=== PATIENT | female | born 1935 | race Two or more races ===

== ENCOUNTER 2018-09-25 11:54 | Inpatient (IN) | payer MEDICARE, OTHER ==
[2018-09-25] VITALS (14 sets, daily range): BP systolic 93–128; BP diastolic 32–93; PULSE 70–87; RESP 20–27; Ht 160 cm; Wt 64.7 kg
[~2018-09-25] VITALS: Ht 160 cm; Wt 64.7 kg
[~2018-09-25 11:54] MED LIST: CARV12.598 PO; CHOL50009 PO; COSO10 LEFT EYE; EZET10TA31 PO; FURO-109 PO; GLYB1TAB3 PO; INSU100C3 SC; INSU100I28 SC; LEVO50TA7 PO; POTA8CAP PO; ROSU40TA35 PO; VALS80TA2 PO; WARF2.5T PO; WARF5TAB PO
[2018-09-25] MEDS ORDERED: ALBUTEROL 0.5% (NEB) 2.5 MG/0.5 ML AMP INH STA (12:12)
[2018-09-25] MEDS ORDERED: MAGNESIUM SULFATE 2 GM/50 ML 50 ML IVPB STA (12:12)
[2018-09-25] MEDS: morphine 2 MG INJ IV STA ×2 (12:12→12:40)
[2018-09-25] MEDS ORDERED: NITROGLYCERIN 2% 1 GM OINT PKT TD STA (12:12)
[2018-09-25] MEDS ORDERED: ONDANSETRON 4 MG INJ IV STA (12:12)
[2018-09-25] MEDS ORDERED: DEXAMETHASONE 10 MG/ML 1 ML INJ IV STA (12:12)
[2018-09-25] MEDS ORDERED: ASPIRIN 81 MG TAB PO STA (12:12)
[2018-09-25] MEDS ORDERED: FUROSEMIDE 20 MG INJ IV STA (12:12)
--- NOTE | 2018-09-25 12:28 | ERD ---
ER Documentation Chief Complaint Chief Complaint pt. 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 This is an 83-year-old female history of asthma, hypertension and possible CHF. The patient presents with shortness of breath that started approximately 1 hour prior to arrival with blood pressure that was elevated in the 1 8190 range. Upon arrival the patient received a breathing treatment via EMS. Patient is describing persistent shortness of breath and a sensation that she cannot take a deep breath in. She denies any pressure. No fevers chills or cough. No pleuritic pain. Symptoms are described as moderate. ROS All systems reviewed and are negative except as per history of present illness. Medications Home Meds Reported Medications Levothyroxine Sodium* (Levoxyl*) 50 Mcg Tablet, 50 MCG PO BEFORE BREAKFAST, #30 TAB 09/25/18 Insulin Aspart* (Novolog Insulin Pen*) 100 Unit/Ml Soln, 0 SC .SLIDING SCALE AC, EA WITH LARGEST MEAL 09/25/18 Glipizide/Metformin HCl (Glipizide-Metformin 5-500 mg) 1 Each Tablet, 1 TAB PO BID 09/25/18 Furosemide* (Furosemide*) 20 Mg Tablet, 20 MG PO DAILY, #60 TAB 09/25/18 Ezetimibe* (Zetia*) 10 Mg Tablet, 10 MG PO HS, TAB 09/25/18 Dorzolamide-Timolol* (Cosopt*) 2%-0.5% - 10 Ml Soln, 1 DROP BOTH EYES BID, BOTTLE 09/25/18 Cholecalciferol (Vitamin D3) 5,000 Unit Tablet, 5000 UNIT PO DAILY, TAB 09/25/18 Carvedilol* (Carvedilol*) 3.125 Mg Tablet, 3.125 MG PO BID, #60 TAB 09/25/18 Discontinued Reported Medications Dorzolamide-Timolol* (Cosopt*) 2%-0.5% Soln, 1 DROP LEFT EYE BID, BOTTLE 04/06/14 Ezetimibe* (Zetia*) 10 Mg Tablet, 10 MG PO DAILY, TAB 04/06/14 Warfarin Sodium* (Coumadin*) 5 Mg Tablet, 5 MG PO DAILY, TAB 04/06/14 Warfarin Sodium* (Coumadin*) 2.5 Mg Tablet, 2.5 MG PO DAILY, TAB 04/06/14 Furosemide* (Lasix*) 40 Mg Tablet, 40 MG PO DAILY, TAB 04/06/14 Potassium Chloride* (Potassium Chloride*) 8 Meq Capsule.er, 8 MEQ PO DAILY, CAP 04/06/14 Insulin Aspart (Novolog) 100 U/Ml Cartridge, 10 UNITS SC DAILY, EA 04/06/14 Cholecalciferol* (Vitamin D*) 5,000 Unit Tablet, 5000 UNIT PO WEEKLY ON SUNDAY, TAB 02/03/14 Insulin Detemir* (Levemir*) 100 U/Ml Insuln.pen, 40 UNIT SC QAM, EA 02/03/14 Levothyroxine Sodium* (Levothyroxine Sodium*) 50 Mcg Tablet, 50 MCG PO AC BREAKF AST, TAB 02/03/14 Rosuvastatin Calcium* (Crestor*) 40 Mg Tablet, 40 MG PO HS, TAB 02/03/14 Glyburide, Micro-Metformin Hcl (Glucovance) 5-500 Mg Tablet, 1 TAB PO BID, TAB 02/03/14 Carvedilol* (Coreg*) 12.5 Mg Tablet, 12.5 MG PO BID, TAB 02/03/14 Valsartan* (Diovan*) 80 Mg Tablet, 80 MG PO DAILY, TAB 02/03/14 Allergies Allergies: Coded Allergies: No Known Allergy (Unverified , 09/25/18) PMhx/Soc History of Surgery: No Anesthesia Reaction: No Hx Neurological Disorder: No Hx Respiratory Disorders: No Hx Cardiac Disorders: Yes (CAD AND PACEMAKER) Hx Psychiatric Problems: No Hx Miscellaneous Medical Probl: Yes (HTN, CHF< CAD, IDDM, polyneuropathy, mild dementia) Hx Alcohol Use: No Hx Substance Use: No Hx Tobacco Use: No FmHx Family History: No diabetes Physical Exam Vitals Vital Signs Date Temp Pulse Resp B/P (MAP) Pulse Ox O2 O2 Flow FiO2 Time Delivery Rate 09/25/18 56 100 60 13:15 09/25/18 77 100 100 12:24 09/25/18 98.1 89 22 134/103 94 12:12 (113) Physical Exam General: Anxious Head: Normocephalic, atraumatic. Eyes: Pupils equally reactive, EOM intact ENT: Moist mucous membranes Neck: Supple, no lymphadenopathy Respiratory: Rales at the bases bilaterally left greater than right with mild increased work of breathing Cardiovascular: RRR, no murmurs, rubs, or gallops Abdominal: Soft, non-tender, non-distended, no peritoneal signs : Deferred MSK: No edema, no unilateral swelling, 5/5 strength Neurologic: Alert and oriented, moving all extremities, normal speech, no focal weakness, no cerebellar signs Skin: No rash Psych: Normal mood Result Diagram: 09/25/18 1220 09/25/18 1220 Results 24 hrs Laboratory Tests Test 09/25/18 12:20 White Blood Count 13.8 10^3/ul Red Blood Count 5.00 10^6/ul Hemoglobin 12.9 g/dl Hematocrit 41.6 % Mean Corpuscular Volume 83.2 fl Mean Corpuscular Hemoglobin 25.8 pg Mean Corpuscular Hemoglobin Concent 31.0 g/dl Red Cell Distribution Width 17.8 % Platelet Count 391 10^3/UL Mean Platelet Volume 10.4 fl Immature Granulocytes % 0.900 % Neutrophils % 80.2 % Lymphocytes % 12.9 % Monocytes % 4.5 % Eosinophils % 1.1 % Basophils % 0.4 % Nucleated Red Blood Cells % 0.0 /100WBC Immature Granulocytes # 0.120 10^3/ul Neutrophils # 11.0 10^3/ul Lymphocytes # 1.8 10^3/ul Monocytes # 0.6 10^3/ul Eosinophils # 0.2 10^3/ul Basophils # 0.1 10^3/ul Nucleated Red Blood Cells # 0.0 10^3/ul Prothrombin Time 12.6 Sec Prothrombin Time Ratio 1.0 INR International Normalized Ratio 0.93 Activated Partial Thromboplast Time 22.6 Sec Sodium Level 141 mmol/L Potassium Level 4.4 mmol/L Chloride Level 102 mmol/L Carbon Dioxide Level 27 mmol/L Anion Gap 12 Blood Urea Nitrogen 15 mg/dl Creatinine 1.09 mg/dl Est Glomerular Filtrat Rate mL/min mL/min Glucose Level 238 mg/dl Calcium Level 9.0 mg/dl Total Bilirubin 0.4 mg/dl Direct Bilirubin 0.00 mg/dl Indirect Bilirubin 0.4 mg/dl Aspartate Amino Transf (AST/SGOT) 26 IU/L Alanine Aminotransferase (ALT/SGPT) 22 IU/L Alkaline Phosphatase 77 IU/L Troponin I < 0.012 ng/ml B-Type Natriuretic Peptide 1530 PG/ML Total Protein 8.0 g/dl Albumin 4.2 g/dl Globulin 3.80 g/dl Albumin/Globulin Ratio 1.10 Current Medications Medications Dose Sig/Chelsea Start Time Status Last (Trade) Ordered Route PRN Stop Time Admin Dose Reason Admin Aspirin 162 mg ONCE STAT 09/25/18 DC 09/25/18 (Aspirin) PO 12:12 12:35 09/25/18 12:14 1 inch ONCE STAT 09/25/18 DC 09/25/18 Nitroglycerin TD 12:12 12:35 09/25/18 12:14 (Nitroglyceri n 2% Oint) Morphine 2 mg ONCE STAT 09/25/18 DC Sulfate IV 12:12 (morphine) 09/25/18 12:14 Ondansetron 4 mg ONCE STAT 09/25/18 DC 09/25/18 HCl (Zofran IV 12:12 12:34 Inj) 09/25/18 12:14 Furosemide 60 mg ONCE STAT 09/25/18 DC 09/25/18 (Lasix) IV 12:12 12:35 09/25/18 12:14 Albuterol 10 mg ONCE STAT 09/25/18 DC 09/25/18 (Proventil INH 12:12 12:36 0.5% (Neb)) 09/25/18 12:14 10 mg ONCE STAT 09/25/18 DC 09/25/18 Dexamethasone IV 12:12 12:35 (Decadron) 09/25/18 12:14 Magnesium 50 ml @ 25 ONCE STAT 09/25/18 09/25/18 Sulfate mls/hr IVPB 12:12 12:34 09/25/18 14:11 Procedures/MDM EKG, MONITORS, & DIAGNOSTIC IMAGING: Most recent echocardiogram in electronic medical record Conclusions Normal left ventricular cavity size. Normal left ventricular wall thickness. Overall, mild left ventricular systolic dysfunction. Not all LV neff were visualized. Ejection fraction is visually estimated at 45-50 %. Stage II diastolic dysfunction. Normal right ventricular size and function. There is mild enlargement of left atrium. There is mild enlargement of right atrium. No significant valvular stenosis or regurgitation seen. Normal pericardium with no significant pericardial effusion. Electronically Signed By: Ricardo Anne 07-Apr-2014 13:28:52 -0800 Patient Name: CLAU YEAGER Study Date: 07-Apr-2014 [id number] EKG: I reviewed and interpreted a 12-lead EKG. Rhythm: Paced ST Changes: No contiguous ST segment elevations T waves: No contiguous T wave inversions Impression: No evidence of acute cardiac ischemia CXR Chest x-ray: I reviewed and interpreted a 1 view of the chest Mediastinum: No enlargement Cardiac silhouette: cardiomegaly Airspace: Bilateral pulmonary edema, large left pleural effusion Bones: No evidence of fracture LAB INTERPRETATION: I reviewed the laboratory testing and it shows elevated BNP, negative troponin MEDICAL DECISION MAKING: Patient presents with elevated blood pressure, acute shortness of breath and a clinical exam consistent with acute pulmonary edema. I believe the patient's clinical exam is consistent with acute CHF exacerbation or acute hypertensive emergency and flash pulmonary edema. Patient additionally has asthma and and possible concomitant asthma exacerbation. Low concern for pneumonia, pulmonary embolism or dissection. Patient does have increased work of breathing and would benefit from positive pressure ventilation. BiPAP was initiated. ER COURSE: * Preload and afterload reduction with nitroglycerin, morphine, Lasix * BiPAP initiated * Breathing treatment and steroids and magnesium provided for possible asthma exacerbation * Aspirin provided * Blood pressure dropped slightly with nitroglycerin, this was discontinued. The patient is much improved on positive pressure ventilation. Signs and symptoms not consistent with infectious process. Patient tolerating BiPAP well. Will need the intensive care unit given close monitoring necessary and initiation of positive pressure ventilation CONSULTATION: None DISPOSITION PLAN: Intensive care unit admission Accepting care team and consultations: I discussed the current laboratory data, diagnostic imaging and emergency care provided. Admitting team: Dr. Tolentino Admitting team indication: Insurance directed Critical Care Note: Total time: 45 minutes Indication/Organ System Threat: Acute respiratory failure and acute pulmonary edema I spent the above amount of critical care time with the patient, not including billable procedures. This included chart review, consultations, repeat bedside evaluations, and titration of appropriate medications to prevent cardiopulmonary or respiratory collapse. Departure Diagnosis: Primary Impression: Hypertensive emergency Additional Impressions: Acute exacerbation of CHF (congestive heart failure) Heart failure type: diastolic Qualified Codes: I50.33 - Acute on chronic diastolic (congestive) heart failure Acute respiratory failure Respiratory failure complication: unspecified whether with hypoxia or hypercapnia Qualified Codes: J96.00 - Acute respiratory failure, unspecified whether with hypoxia or hypercapnia Pleural effusion, left Condition: Serious BORM, EL A., MD Sep 25, 2018 12:28
[2018-09-25] MEDS ORDERED: CARV3.1260 PO (13:53)
[2018-09-25] MEDS ORDERED: CHOL500010 PO (13:54)
[2018-09-25] MEDS ORDERED: DORZ10DR22 BOTH EYES (13:55)
[2018-09-25] MEDS ORDERED: EZET10TA31 PO (13:55)
[2018-09-25] MEDS ORDERED: FURO20TA3 PO (13:55)
[2018-09-25] MEDS ORDERED: GLIP1TAB6 PO (13:57)
[2018-09-25] MEDS ORDERED: NOVO3I SC (13:58)
[2018-09-25] MEDS ORDERED: LEVO50TA71 PO (13:59)
[2018-09-25] MEDS ORDERED: POTA8TAB2 PO (13:59)
[2018-09-25] MEDS ORDERED: ASPI325T30 PO (14:00)
[2018-09-25] MEDS ORDERED: ROSU40TA35 PO (14:00)
[2018-09-25] MEDS ORDERED: MEMA1CAP3 PO (14:01)
[2018-09-25] MEDS ORDERED: CILO100T PO (14:01)
[2018-09-25] MEDS ORDERED: INSU300I SQ (14:02)
[2018-09-25] MEDS ORDERED: GABA100C14 PO (14:02)
[2018-09-25] MEDS ORDERED: LOSA25TA12 PO (14:03)
[2018-09-25] MEDS ORDERED: MECL-77 PO (14:03)
[2018-09-25] MEDS: DEXTROSE 5%-0.45% NACL 1,000 ML IV SCH (18:30)
[2018-09-25] MEDS ORDERED: GLUCAGON 1 MG INJ IM PRN (18:30)
[2018-09-25] MEDS ORDERED: GLUCOSE GEL 15 GRAM TUBE BUCCAL PRN (18:30)
[2018-09-25] MEDS ORDERED: GLUCOSE GEL 15 GRAM TUBE PO PRN ×2 (18:30)
[2018-09-25] MEDS ORDERED: DEXTROSE 50% 50 ML SYRINGE IV PRN ×2 (18:30)
[2018-09-25] MEDS: INSULIN ASPART [NOVOLOG] 3 ML PEN SC SCH ×2 (18:34→21:19)
[2018-09-25] MEDS: CILOSTAZOL 100 MG TAB PO SCH (20:14)
[2018-09-25] MEDS ORDERED: DORZOLAMIDE/TIMOLOL 10 ML OPH BOTH EYES SCH (21:00)
--- NOTE | 2018-09-25 21:08 | CONS ---
DATE OF ADMISSION: 09/25/2018 DATE OF CONSULTATION: 09/25/2018 REASON FOR CONSULTATION: Shortness of breath, respiratory failure, assess for congestive heart failu re, as well as permanent pacemaker, history of stent. REQUESTING PHYSICIAN: Dr. Graeme Grullon HISTORY OF PRESENT ILLNESS: Ms. Wright is an 83-year-old female with history of coronary artery d isease status post prior PCI, hypertension, diabetes mellitus, atrial fibrillation, permanent pacemak er, who presented to the emergency department with complaints of acute-onset shortness of breath and hypertension. Upon arrival, temperature 98.1, blood pressure 134/103, pulse 89, respiratory rate 22, satting 94%. The patient's labs revealed a white blood cell count of 13.8, hemoglobin 12.9, platele t count 391; sodium 141, potassium 4.4, creatinine 1.0, BUN of 15, AST 26, ALT 22; troponin negative, BNP of 1530; INR 0.93. The patient underwent a chest x-ray revealing findings suggestive of pulmona ry vascular congestion with large left and small right pleural effusions, mild cardiomegaly and aorti c atherosclerosis. The patient just underwent a chest ultrasound revealing moderate right pleural ef fusion and large left pleural effusion. The patient's electrocardiogram was ventricular paced with l ow voltage. The patient in the emergency department was treated with aspirin 162 mg, morphine 2 mg I V x1, Lasix 60 mg IV x1, Decadron 2 mg IV x1, magnesium sulfate. Prior to the initiation of BiPAP, s he was admitted to the ICU. Since admit to the ICU, patient has had significant diuresis over 900 mL and remains on BiPAP. PAST MEDICAL HISTORY: As above in the HPI. MEDICATIONS CURRENTLY IN THE HOSPITAL: 1. Aspirin 325 mg daily. 2. Cozaar 12.5 mg daily. 3. Lasix 40 mg IV daily. 4. Synthroid 50 mcg daily. 5. Carvedilol 3.125 mg p.o. b.i.d. 6. Pletal 100 mg b.i.d. 7. Cosopt eyedrops. 8. Potassium chloride. ALLERGIES: NO KNOWN DRUG ALLERGIES. SOCIAL HISTORY: No current tobacco, ETOH or illicit drug use. FAMILY HISTORY: No history of sudden cardiac or early CAD. REVIEW OF SYSTEMS: As above in the HPI. CONSTITUTIONAL: No fevers or chills. PULMONARY: Respiratory failure, on BiPAP. GASTROINTESTINAL: No vomiting. GENITOURINARY: No hematuria. MUSCULOSKELETAL: Degenerative joint disease. PSYCHIATRIC: No documented psych history. NEUROLOGIC: No documented history of CVA. ENDOCRINE: Positive for history of diabetes mellitus and hypothyroidism. PHYSICAL EXAMINATION: VITAL SIGNS: Temperature of 96.7, blood pressure most recently 93/32, pulse 75, respiratory rate 22, satting 100% on BiPAP. GENERAL: The patient is alert, awake, appears somewhat uncomfortable. NECK: JVP approximately 9 to 10 cm of water. CHEST: Upper airway transmitted rhonchus sounds. HEART: Regular rate and rhythm. Normal S1, S2. A I/ systolic murmur. ABDOMEN: Positive bowel sounds. Soft. EXTREMITIES: No significant pitting edema, 1+ pulses bilateral posterior tibial. LABORATORY DATA: As above in the HPI. No further labs for my review at this time. IMAGING STUDIES: As above in the HPI. No further imaging studies for my review at this time. ELECTROCARDIOGRAM: As above in the HPI. No further electrocardiograms for my review at this time. IMPRESSION: 1. Congestive heart failure exacerbation, question systolic versus diastolic. By most recent echo i n 2013, EF of 45% to 50%. Thus, it will be systolic, acute on chronic, than diastolic. 2. Permanent pacemaker with no signs of dysfunction at this time, atrioventricular pacing 100%. 3. Pleural effusions likely consistent with the patient's congestive heart failure exacerbation with volume overloaded state. 4. Respiratory failure, on BiPAP. 5. Renal insufficiency, mild. 6. Leukocytosis. 7. Peripheral arterial disease, without medications. 8. Hypothyroidism. 9. Diabetes mellitus. RECOMMENDATIONS: 1. At this time, we would maintain patient in ICU on BiPAP. At this time, we would continue the pat ient's Lasix for diuresis. We will change the patient's Lasix to b.i.d. and continue to follow volum e status closely. 2. Continue the patient's baseline low-dose carvedilol and losartan as tolerated only. 3. We will check a 2D echo for reassessment of patient's ejection fraction, wall motion or any major abnormalities. 4. We will consider bronchodilators as necessary. 5. Continue patient's Pletal for treatment of peripheral arterial disease. 6. We will complete a rule out for myocardial infarction to ensure that the patient's constellation of symptoms is not the result of an acute coronary syndrome such as acute myocardial infarction. We will continue the patient's aspirin at this time additionally. 7. We will check a fasting lipid panel for general risk stratification and initiate lipid-lowering m edication as necessary. 8. Resume the patient's baseline medication for diabetes and follow blood sugars closely. Thank you for allowing me to take part in the care of this patient. I will continue to follow along very closely with you. Further recommendations will be made as the patient progresses through her in patient hospital clinical course. Dictated By: CARMEN STODDARD/ABEBE Conf#: [id number] DID#: [id number] CC: GRAEME GRULLON MD;*End*
[2018-09-25] MEDS: DORZOLAMIDE/TIMOLOL/PF 0.2 ML DROPERETTE BOTH EYES SCH (21:16)
--- NOTE | 2018-09-25 22:40 | HP ---
DATE OF ADMISSION: 09/25/2018 HISTORY OF PRESENT ILLNESS: The patient was brought into the emergency room by family members for sh ortness of breath. Apparently before coming to the emergency room, patient started having shortness of breath and difficulty taking deep breaths in that is why family members brought her into the emerg ency room. The patient did not have any chest pain, did not have any fever, chills, cough of any sor t, just shortness of breath. The patient was brought in by EMT and in the ambulance was given a jarod thing treatment and brought into the ER. PAST MEDICAL HISTORY: The patient has past medical history of hypertension, coronary artery disease, type 2 diabetes mellitus, insulin-dependent, CHF, bilateral carotid endarterectomies years ago. She also has history of atrial fibrillation and she has a pacemaker. History of atherosclerotic vascula r disease, degenerative joint disease, history of falls and fractures and mild to moderate dementia. HOME MEDICATIONS: Are as follows, she is on: 1. Synthroid 50 p.o. daily. 2. Insulin injections per sliding scale. 3. She is on Janumet /500 twice a day. 4. Lasix 20 once a day. 5. Zetia 10 once a day. 6. Eyedrops for glaucoma. 7. She was on Coumadin, but recently stopped by her hat checker. 8. Potassium 10 mEq p.o. daily. 9. Vitamin D 5000 units daily. 10. Synthroid 50 mcg daily. 11. Rosuvastatin 40 mg daily. 12. Carvedilol 12.5 twice a day. 13. Valsartan 80 mg once a day. ALLERGIES: NO KNOWN ALLERGIES. FAMILY HISTORY: History of hypertension and atherosclerotic vascular disease. PAST SURGICAL HISTORY: As I mentioned, she had bilateral endarterectomies and she has a pacemaker. SOCIAL HISTORY: No history of alcohol abuse or drug abuse. No history of tobacco use. REVIEW OF SYSTEMS: At this point, patient complaining of shortness of breath only. She denies of an y chest pain. She denies of any cough, sputum production, . Denies of any fever. Denies of an y epigastric pain. Denies of nausea, vomiting. Denies of abdominal pain. Denies of any hesitancy, urgency or pain during urination. PHYSICAL EXAMINATION: GENERAL: The patient is short of breath, had difficulty taking deep breaths in, but no pain over the chest wall. HEENT: Head is atraumatic, normocephalic. Pupils are equal and reactive to light. Extraocular musc les are intact. Nares are clear, no obstruction, no deviation of the septum. Oral cavity normal ora l hygiene. Ear canals are clear, no signs of inflammation or infection. Tympanic membranes are inta ct. NECK: Supple. No JVD, no surgical scars, no lymph nodes palpable over the neck. CHEST: AP contour is within normal limits. BREASTS: Nipples are normal, no nipple retraction. HEART: S1, S2, pacing properly. LUNGS: Crackles over the bases of the lungs bilaterally, left more than the right with mild expirato ry wheezes. ABDOMEN: Soft, positive bowel sounds, no hepatosplenomegaly, no masses palpable over the abdomen and no rebound tenderness. EXTREMITIES: No edema, clubbing or cyanosis of the extremities. LABORATORY DATA: Today, white count is 13.8, hemoglobin 12.9, hematocrit 41.6 and platelets 391. So dium is 141, potassium 4.4, BUN is 15, creatinine 1.09 and sugars are elevated at 238. The patient had EKG which showed no new changes. ADMITTING DIAGNOSES: 1. Pleural effusion. 2. Acute congestive heart failure with diastolic dysfunction. 3. Hypertensive urgency. 4. Type 2 diabetes mellitus with complications. 5. Chronic kidney disease. 6. Atherosclerotic vascular disease. 7. Dyslipidemia. 8. Shortness of breath. PLAN: The patient will go to ICU for the elevated blood pressure and closer monitoring and will be o n BiPAP. Once the patient's oxygenation is much better, the patient can be transferred to tele. The patient at this time is comfortable on BiPAP but will titrate off very soon. Therefore, patient als o will be seen by the hat checker. Advised Dr. Hoang to see the patient. Also, Dr. Gonzalez for p ulmonary consult. Dictated By: GRAEME GRULLON MD SB/ABEBE Conf#: [id number] DID#: [id number]
[2018-09-26] VITALS (18 sets, daily range): BP systolic 89–132; BP diastolic 38–69; PULSE 70–77; RESP 17–20
[2018-09-26] MEDS: INSULIN ASPART [NOVOLOG] 3 ML PEN SC SCH ×2 (00:54→04:33)
[2018-09-26] MEDS: LEVOTHYROXINE 50 MCG TAB PO SCH (06:34)
[2018-09-26] MEDS: Insulin NOVOLOG SS MODERATE Algorithm (SS with meals and bedtime) SC SCH ×4 (07:55→20:44)
[2018-09-26] MEDS: LOSARTAN 25 MG TAB PO SCH (09:00)
[2018-09-26] MEDS: FUROSEMIDE 40 MG INJ IV SCH ×2 (09:00→20:31)
[2018-09-26] MEDS ORDERED: FUROSEMIDE 40 MG INJ IV SCH (09:00)
[2018-09-26] MEDS: CILOSTAZOL 100 MG TAB PO SCH ×2 (09:51→20:29)
[2018-09-26] MEDS: ASPIRIN 325 MG TAB PO SCH (09:51)
[2018-09-26] MEDS: DORZOLAMIDE/TIMOLOL/PF 0.2 ML DROPERETTE BOTH EYES SCH ×2 (09:51→20:29)
[2018-09-26] MEDS: POTASSIUM CHLORIDE (SR) 8 MEQ CAP PO SCH (09:51)
[2018-09-26] MEDS ORDERED: ACCUCHECK 2 HOURS AFTER FIRST BITE XX SCH (09:55)
[2018-09-26] MEDS: DEXTROSE 5%-0.45% NACL 1,000 ML IV SCH (10:21)
[2018-09-26] MEDS ORDERED: INSULIN ASPART [NOVOLOG] 3 ML PEN SC SCH (11:20)
--- NOTE | 2018-09-26 11:23 | CONS ---
Assessment/Plan Assessment/Plan Assessment/Plan (Daily) Chest x-ray showing bilateral large pleural effusions with cardiomegaly. Assessment and recommendations; 1. Patient admitted with shortness of breath due to CHF exacerbation with large bilateral pleural effusions with a prior history of thoracentesis done several years ago. 2. Systemic hypertension. 3. Diabetes. 4. Hypothyroidism. 5. History of cardiac arrhythmia, status post pacemaker placement. 6. History of chronic mild renal insufficiency. Continue current supportive care. Schedule ultrasound-guided thoracentesis either right or left. Patient also is going to have pacemaker replacement. Currently there is no evidence to suggest any infective process. Continue BiPAP for now. I did have a very detailed discussion with the patient's daughter at bedside and answered all her questions. The daughter has agreed for thoracentesis. Consultation Date/Type/Reason Admit Date/Time Sep 25, 2018 at 13:37 Date of Consultation: Sep 26, 2018 Type of Consult Pulmonary Patient is a very pleasant 83-year-old lady who is a resident of [facility] transferred to hospital because of shortness of breath going on for the last 2 months. According to patient's daughter, the shortness of breath really got worse yesterday with wheezing. Patient denies any chest pain, fever, sputum production and hemoptysis. By the time I saw her, patient is laying comfortably in bed. And did not appear to be in any distress whatsoever. Because of language barrier, history was obtained from patient's daughter who was present in the room. According to her, the patient does have a history of thoracentesis performed several years ago. Past medical history; 1. History of cardiac arrhythmia, status post pacemaker placement in the past. 2. CHF. 3. Hypothyroidism. 4. Diabetes. 5. Mild renal insufficiency. 6. Hypertension. Medications; reviewed. Allergies; none. Social history; remote history of scant smoking. Family history; she is a . Has a supportive family. 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 Review of systems; denies any headache, sinus symptoms, seizures, dysphagia, chest pain, angina, complains of shortness of breath with exertion. Denies any cough, wheezing, sputum production or hemoptysis. Denies any abdominal pain, nausea vomiting. Melena hematochezia. Complains of mild orthopnea. Denies any urinary symptoms. General exam; elderly female, awake alert, currently no distress. Date/Time of Note DATE: 09/26/18 TIME: 11:18 Past Medical History Home Meds Reported Medications Meclizine Hcl* (Meclizine Hcl*) 25 Mg Tablet, 12.5 MG PO BID PRN for DIZZINESS, TAB 09/25/18 Losartan Potassium* (Losartan Potassium*) 25 Mg Tablet, 12.5 MG PO DAILY, TAB 09/25/18 Gabapentin* (Gabapentin*) 100 Mg Capsule, 100 MG PO BID PRN for PAIN, #90 CAP 09/25/18 Insulin Glargine,Hum.rec.anlog (Toujeo Solostar) 300 Unit/1 Ml Insuln.pen, 20 UNIT SQ QHS, EA 09/25/18 Memantine HCl/Donepezil HCl (Namzaric 28 mg-10 mg Capsule) 1 Each Cap.spr.24, 1 EACH PO DAILY 09/25/18 Cilostazol* (Cilostazol*) 100 Mg Tablet, 100 MG PO BID, TAB 09/25/18 Aspirin* (Aspirin*) 325 Mg Tablet, 325 MG PO DAILY, TAB 09/25/18 Rosuvastatin Calcium* (Crestor*) 40 Mg Tablet, 40 MG PO QHS, #30 TAB 09/25/18 Potassium Chloride* (Klor-Con*) 8 Meq Tablet.sa, 8 MEQ PO DAILY, TAB 09/25/18 Levothyroxine Sodium* (Levoxyl*) 50 Mcg Tablet, 50 MCG PO BEFORE BREAKFAST, #30 TAB 09/25/18 Insulin Aspart* (Novolog Insulin Pen*) 100 Unit/Ml Soln, 0 SC .SLIDING SCALE AC, EA WITH LARGEST MEAL 09/25/18 Glipizide/Metformin HCl (Glipizide-Metformin 5-500 mg) 1 Each Tablet, 1 TAB PO BID 09/25/18 Furosemide* (Furosemide*) 20 Mg Tablet, 20 MG PO DAILY, #60 TAB 09/25/18 Ezetimibe* (Zetia*) 10 Mg Tablet, 10 MG PO HS, TAB 09/25/18 Dorzolamide-Timolol* (Cosopt*) 2%-0.5% - 10 Ml Soln, 1 DROP BOTH EYES BID, BOTTLE 09/25/18 Cholecalciferol (Vitamin D3) 5,000 Unit Tablet, 5000 UNIT PO DAILY, TAB 09/25/18 Carvedilol* (Carvedilol*) 3.125 Mg Tablet, 3.125 MG PO BID, #60 TAB 09/25/18 Discontinued Reported Medications Dorzolamide-Timolol* (Cosopt*) 2%-0.5% Soln, 1 DROP LEFT EYE BID, BOTTLE 04/06/14 Ezetimibe* (Zetia*) 10 Mg Tablet, 10 MG PO DAILY, TAB 04/06/14 Warfarin Sodium* (Coumadin*) 5 Mg Tablet, 5 MG PO DAILY, TAB 04/06/14 Warfarin Sodium* (Coumadin*) 2.5 Mg Tablet, 2.5 MG PO DAILY, TAB 04/06/14 Furosemide* (Lasix*) 40 Mg Tablet, 40 MG PO DAILY, TAB 04/06/14 Potassium Chloride* (Potassium Chloride*) 8 Meq Capsule.er, 8 MEQ PO DAILY, CAP 04/06/14 Insulin Aspart (Novolog) 100 U/Ml Cartridge, 10 UNITS SC DAILY, EA 04/06/14 Cholecalciferol* (Vitamin D*) 5,000 Unit Tablet, 5000 UNIT PO WEEKLY ON SUNDAY, TAB 02/03/14 Insulin Detemir* (Levemir*) 100 U/Ml Insuln.pen, 40 UNIT SC QAM, EA 02/03/14 Levothyroxine Sodium* (Levothyroxine Sodium*) 50 Mcg Tablet, 50 MCG PO AC BREAKFAST, TAB 02/03/14 Rosuvastatin Calcium* (Crestor*) 40 Mg Tablet, 40 MG PO HS, TAB 02/03/14 Glyburide, Micro-Metformin Hcl (Glucovance) 5-500 Mg Tablet, 1 TAB PO BID, TAB 02/03/14 Carvedilol* (Coreg*) 12.5 Mg Tablet, 12.5 MG PO BID, TAB 02/03/14 Valsartan* (Diovan*) 80 Mg Tablet, 80 MG PO DAILY, TAB 02/03/14 Medications Current Medications Aspirin (Aspirin) 325 mg DAILY PO Last administered on 09/26/18at 09:51; Admin Dose 325 MG; Start 09/26/18 at 09:00 Carvedilol (Coreg) 3.125 mg BID PO ; Start 09/25/18 at 21:00 Cilostazol (Pletal) 100 mg BID PO Last administered on 09/26/18at 09:51; Admin Dose 100 MG; Start 09/25/18 at 21:00 Levothyroxine Sodium (Synthroid) 50 mcg BEFORE BREAKFAST PO Last administered on 09/26/18at 06:34; Admin Dose 50 MCG; Start 09/26/18 at 07:00 Losartan Potassium (Cozaar) 12.5 mg DAILY PO ; Start 09/26/18 at 09:00 Potassium Chloride (Micro-K) 8 meq DAILY PO Last administered on 09/26/18at 09:51; Admin Dose 8 MEQ; Start 09/26/18 at 09:00 Furosemide (Lasix) 40 mg BID IV ; Start 09/26/18 at 09:00 Dextrose/Sodium Chloride 1,000 ml @ 20 mls/hr Q24H IV Last administered on 09/26/18at 10:21; Admin Dose 20 MLS/HR; Start 09/25/18 at 18:30 Miscellaneous Information 1 ea NOTE XX ; Start 09/25/18 at 18:30 Glucose (Glutose) 15 gm Q15M PRN PO DECREASED GLUCOSE; Start 09/25/18 at 18:30 Glucose (Glutose) 22.5 gm Q15M PRN PO DECREASED GLUCOSE; Start 09/25/18 at 18:30 Dextrose (D50w Syringe) 25 ml Q15M PRN IV DECREASED GLUCOSE; Start 09/25/18 at 18:30 Dextrose (D50w Syringe) 50 ml Q15M PRN IV DECREASED GLUCOSE; Start 09/25/18 at 18:30 Glucagon (Glucagen) 1 mg Q15M PRN IM DECREASED GLUCOSE; Start 09/25/18 at 18:30 Glucose (Glutose) 15 gm Q15M PRN BUCCAL DECREASED GLUCOSE; Start 09/25/18 at 18:30 Dorzolamide/ Timolol (Cosopt Pf Eye Drops) 1 drop BID BOTH EYES Last administered on 09/26/18at 09:51; Admin Dose 1 DROP; Start 09/25/18 at 21:00 Insulin Aspart (Novolog Insulin Pen) (Adult SC Insulin - Moder... WITH MEALS BEDTIME SC ; Start 09/26/18 at 07:55 Diagnostic Test (Pha) (Accu-Chek) 1 ea 02 XX ; Start 09/27/18 at 02:00 Allergies: Coded Allergies: No Known Allergy (Unverified , 09/25/18) Social History Smoking Status: Never smoker Exam/Review of Systems Exam Vitals Vital Signs Date Temp Pulse Resp B/P (MAP) Pulse Ox O2 O2 Flow FiO2 Time Delivery Rate 09/26/18 76 08:01 09/26/18 97.3 17 99/50 (66) 99 07:05 09/26/18 Nasal 3.0 06:05 Cannula 09/25/18 60 21:19 Intake and Output 09/25/18 09/25/18 09/26/18 1515:00 23:00 07:00 IntakeIntake Total 50 ml OutputOutput Total 1530 ml 210 ml BalanceBalance -1480 ml -210 ml Exam H EENT exam; supple neck, positive JVD. No lymphadenopathy. Midline trachea. No thyromegaly. Patient is edentulous. Chest exam; diminished breath sound lung bases. Upper lobes are clear. S1-S2 audible, no murmurs. Pacemaker in left chest wall. Abdomen exam; soft, protuberant. Nontender. No organomegaly. Bowel sounds audible. Extremity exam; no peripheral edema clubbing. CARPENTER SHIP exam; no focal deficit. Results Result Diagram: 09/26/18 0426 09/26/18 0426 Results 24hrs Laboratory Tests Test 09/25/18 12:20 09/25/18 16:54 09/25/18 17:52 09/25/18 18:33 White Blood Count 13.8 #H Red Blood Count 5.00 # Hemoglobin 12.9 Hematocrit 41.6 Mean Corpuscular 83.2 Volume Mean Corpuscular 25.8 L Hemoglobin Mean Corpuscular 31.0 L Hemoglobin Concen t Red Cell 17.8 H Distribution Width Platelet Count 391 Mean Platelet 10.4 Volume Immature 0.900 H Granulocytes % Neutrophils % 80.2 H Lymphocytes % 12.9 L Monocytes % 4.5 Eosinophils % 1.1 Basophils % 0.4 Nucleated Red 0.0 Blood Cells % Immature 0.120 H Granulocytes # Neutrophils # 11.0 H Lymphocytes # 1.8 Monocytes # 0.6 Eosinophils # 0.2 Basophils # 0.1 Nucleated Red 0.0 Blood Cells # Prothrombin Time 12.6 Prothrombin Time 1.0 Ratio INR International 0.93 Normalized Ratio Activated 22.6 L Partial Thrombopl ast Time Sodium Level 141 Potassium Level 4.4 Chloride Level 102 Carbon Dioxide 27 Level Anion Gap 12 Blood Urea 15 Nitrogen Creatinine 1.09 H Est Glomerular Filtrat Rate mL/min Glucose Level 238 H Calcium Level 9.0 Total Bilirubin 0.4 Direct Bilirubin 0.00 Indirect 0.4 Bilirubin Aspartate Amino 26 Transf (AST/SGOT) Alanine 22 Aminotransferase (ALT/SGPT) Alkaline 77 Phosphatase Troponin I < 0.012 B-Type 1530 H Natriuretic Peptide Total Protein 8.0 Albumin 4.2 Globulin 3.80 H Albumin/Globulin 1.10 Ratio Blood Gas Blood arterial Specimen Source Arterial Blood 09/25/2018 9:30:2 Date Drawn 4 PM Arterial Blood pH 7.467 H (Temp corrected) Arterial Blood 38.9 pCO2 (Temp correct) Arterial Blood 197.9 H pO2 (Temp corrected) Arterial Blood 27.5 H HCO3 Arterial Blood 3.6 H Base Excess Arterial Blood 98.6 Oxygen Saturation [place] Test ACCEPTAB Arterial Blood Right Radial Gas Puncture Site Arterial 0.3 Blood Carboxyhemo globin Arterial Blood 0.5 Methemoglobin Blood Gas A-a O2 187.1 H Differential Oxyhemoglobin 97.8 Percent Blood Gas 37.0 Temperature Blood Gas 16.0 Respiration Rate Blood Gas Actual 21 Respiration Rate Blood Gas MASK - BIPAP Modality FiO2 60.0 Blood Gas 10 Pressure Support Blood Gas 15/5 IPAP/EPAP Ratio Blood Gas KB Notified Whom Blood Gas 09/25/2018 9:43:2 Notified Time 9 PM Bedside Glucose 275 H 290 H Test 09/25/18 18:48 09/25/18 21:16 09/26/18 00:14 09/26/18 00:50 Creatine Kinase 58 50 Creatine Kinase 1.1 1.1 Index Creatinine Kinase 0.66 0.53 MB (Mass) Troponin I 0.028 0.020 Bedside Glucose 251 H 199 Test 09/26/18 04:26 09/26/18 04:32 09/26/18 08:12 White Blood Count 8.4 # Red Blood Count 4.47 Hemoglobin 11.4 L Hematocrit 36.0 L Mean Corpuscular 80.5 L Volume Mean Corpuscular 25.5 L Hemoglobin Mean Corpuscular 31.7 L Hemoglobin Concen t Red Cell 17.9 H Distribution Width Platelet Count 316 Mean Platelet 10.7 H Volume Immature 0.600 H Granulocytes % Neutrophils % 86.5 H Lymphocytes % 7.7 L Monocytes % 5.1 Eosinophils % 0.0 Basophils % 0.1 Nucleated Red 0.0 Blood Cells % Immature 0.050 H Granulocytes # Neutrophils # 7.3 Lymphocytes # 0.7 L Monocytes # 0.4 Eosinophils # 0.0 Basophils # 0.0 Nucleated Red 0.0 Blood Cells # Sodium Level 137 Potassium Level 4.4 Chloride Level 96 L Carbon Dioxide 30 Level Anion Gap 11 Blood Urea 24 H Nitrogen Creatinine 1.29 H Est Glomerular Filtrat Rate mL/min Glucose Level 146 # Calcium Level 8.4 B-Type 2920 H Natriuretic Peptide Triglycerides 84 Level Cholesterol Level 87 L LDL Cholesterol, 20 Calculated HDL Cholesterol 50 Cholesterol/HDL 1.7 Ratio Bedside Glucose 130 141 Medications Medication Current Medications Aspirin (Aspirin) 325 mg DAILY PO Last administered on 09/26/18at 09:51; Admin Dose 325 MG; Start 09/26/18 at 09:00 Carvedilol (Coreg) 3.125 mg BID PO ; Start 09/25/18 at 21:00 Cilostazol (Pletal) 100 mg BID PO Last administered on 09/26/18at 09:51; Admin Dose 100 MG; Start 09/25/18 at 21:00 Levothyroxine Sodium (Synthroid) 50 mcg BEFORE BREAKFAST PO Last administered on 09/26/18at 06:34; Admin Dose 50 MCG; Start 09/26/18 at 07:00 Losartan Potassium (Cozaar) 12.5 mg DAILY PO ; Start 09/26/18 at 09:00 Potassium Chloride (Micro-K) 8 meq DAILY PO Last administered on 09/26/18at 09:51; Admin Dose 8 MEQ; Start 09/26/18 at 09:00 Furosemide (Lasix) 40 mg BID IV ; Start 09/26/18 at 09:00 Dextrose/Sodium Chloride 1,000 ml @ 20 mls/hr Q24H IV Last administered on 09/26/18at 10:21; Admin Dose 20 MLS/HR; Start 09/25/18 at 18:30 Miscellaneous Information 1 ea NOTE XX ; Start 09/25/18 at 18:30 Glucose (Glutose) 15 gm Q15M PRN PO DECREASED GLUCOSE; Start 09/25/18 at 18:30 Glucose (Glutose) 22.5 gm Q15M PRN PO DECREASED GLUCOSE; Start 09/25/18 at 18:30 Dextrose (D50w Syringe) 25 ml Q15M PRN IV DECREASED GLUCOSE; Start 09/25/18 at 18:30 Dextrose (D50w Syringe) 50 ml Q15M PRN IV DECREASED GLUCOSE; Start 09/25/18 at 18:30 Glucagon (Glucagen) 1 mg Q15M PRN IM DECREASED GLUCOSE; Start 09/25/18 at 18:30 Glucose (Glutose) 15 gm Q15M PRN BUCCAL DECREASED GLUCOSE; Start 09/25/18 at 18:30 Dorzolamide/ Timolol (Cosopt Pf Eye Drops) 1 drop BID BOTH EYES Last administered on 09/26/18at 09:51; Admin Dose 1 DROP; Start 09/25/18 at 21:00 Insulin Aspart (Novolog Insulin Pen) (Adult SC Insulin - Moder... WITH MEALS BEDTIME SC ; Start 09/26/18 at 07:55 Diagnostic Test (Pha) (Accu-Chek) 1 ea 02 XX ; Start 09/27/18 at 02:00 YI MOYA Sep 26, 2018 11:23
--- NOTE | 2018-09-26 13:43 | PN ---
DATE: 09/26/2018 An 83-year-old female was admitted yesterday for acute shortness of breath. She was initially put in the ICU because of desaturation and hypoxemia. Patient tolerated the BiPAP very well and breathing was much better after the diuresis of the Lasix so therefore she was transferred to tele. Patient to day on 09/26/2018 and tele doing very well. Patient's past medical history, atherosclerotic vascular disease, hypertension, type 2 diabetes mellitus, bilateral carotid endarterectomy years ago, coronar y artery disease, atrial fibrillation on Eliquis in the past but at this time on aspirin due to frequ ent falls and hematuria as the patient today is doing much better, alert and oriented x3, in no acute distress on 2 liters of oxygen, tolerating very well. REVIEW OF SYSTEMS: She denies any headaches. Denies any chest pain, denies any abdominal pain, naus ea, vomiting. Denies any hesitancy, urgency or pain during urination. OBJECTIVE: VITAL SIGNS: Blood pressure is 132/63, heart rate is 75, respiratory rate 18. She is afebrile and s aturating 99% on 3 liters of oxygen. GENERAL: Alert and oriented x3, in no acute distress. HEENT: Atraumatic, normocephalic. Pupils are equal and reactive to light. Extraocular muscles are intact. Nares are clear, no obstruction, no deviation of the septum. Oral cavity normal, oral hygie ne. Ear canals are clear, no signs of inflammation or infection. Tympanic membranes intact. NECK: Supple. No JVD. She has bilateral carotid endarterectomy surgical scars, otherwise negative. CHEST: AP contour within normal limits. Breasts and nipples are normal, no nipple retraction. HEART: Irregular cardiomegaly. LUNGS: Crackles over the bases of the lungs bilaterally, left more than the right and pleural effusi on. ABDOMEN: Soft, positive bowel sounds, no hepatosplenomegaly, no masses palpable over the abdomen and no rebound tenderness. EXTREMITIES: No edema, clubbing or cyanosis of the extremities. LABORATORY DATA: Today CBC: White blood cells 8.4, hemoglobin 11.4, hematocrit 36, platelet count i s 316. Chemistry, sugar is elevated to 250, and the sodium is 137, potassium 4.4, BUN is 24, creatin ine 1.29. Cardiac enzymes negative at this time and troponin negative also. Chest x-ray shows pleur al effusions, left much larger than the right. Bilateral pleural effusions which did not decrease by the Lasix that was given to the patient yesterday. ADMITTING DIAGNOSES: 1. Acute shortness of breath. 2. Acute respiratory distress. 3. Hypoxemia. 4. Pleural effusions bilaterally. 5. Chronic heart failure exacerbation. 6. Atherosclerotic vascular disease. 7. Coronary artery disease. 8. Type 2 diabetes mellitus. 9. Polyneuropathy. PLAN: Patient will have ultrasound-guided thoracentesis. Will continue discussion with the cardiolo gists, Dr. Hoang and Dr. Gonzalez and will continue treatment as tolerated. Dictated By: GRAEME VYAS/ABEBE Conf#: [id number] DID#: [id number]
--- NOTE | 2018-09-26 14:55 | RADRPT ---
Vent Rate: 71 bpm RR Interval: 847 msec MS Interval: 147 msec QRS Duration: 134 msec QT Interval: 456 msec QTC Interval: 495 msec P-R-T [place]: 23 - 225 - 20 degrees A-V dual-paced rhythm with some inhibition...atrial and/or vent inhibition Electronically Signed By: Ricardo Anne
--- NOTE | 2018-09-26 20:48 | CONS ---
Assessment/Plan Assessment/Plan Hospital Course (Demo Recall) IMPRESSION: 1. Congestive heart failure exacerbation, question systolic versus diastolic. By most recent echo in 2013, EF of 45% to 50%. Thus, it will be systolic, acute on chronic, than diastolic.-neg trop x 3 2. Permanent pacemaker with no signs of dysfunction at this time, atrioventricu lar pacing 100%. 3. Pleural effusions likely consistent with the patient's congestive heart failure exacerbation with volume overloaded state. 4. Respiratory failure, on BiPAP. 5. Renal insufficiency, mild. 6. Leukocytosis. 7. Peripheral arterial disease, without medications. 8. Hypothyroidism. 9. Diabetes mellitus. Recc: -Tele -serial ecg's -continue lasix diuresis -Will f/u echo -Continue losartan/coreg and follow BP clsoely -To have L sided thoracentesis -Contineu asa/pletal Consultation Date/Type/Reason Admit Date/Time Sep 25, 2018 at 13:37 Initial Consult Date 09/26/18 Type of Consult Cardiology Reason for Consultation CHF Requesting Provider: GRAEME GRULLON MD Date/Time of Note DATE: 09/26/18 TIME: 20:44 Exam/Review of Systems Vital Signs Vitals Vital Signs Date Temp Pulse Resp B/P (MAP) Pulse Ox O2 O2 Flow FiO2 Time Delivery Rate 09/26/18 97.9 75 18 116/59 99 20:32 (78) 09/26/18 3.0 17:54 09/26/18 Nasal 06:05 Cannula 09/25/18 60 21:19 Intake and Output 09/25/18 09/25/18 09/26/18 1515:00 23:00 07:00 IntakeIntake Total 50 ml OutputOutput Total 1530 ml 210 ml BalanceBalance -1480 ml -210 ml Exam Exam Review of Systems: CONSTITUTIONAL: No fevers, chills. PULMONARY: improved sob CARDIOVASCULAR: No chest pain/palpitations GASTROINTESTINAL: No nausea/vomiting. GENITOURINARY: No hematuria/dysuria. MUSCULOSKELETAL: No myagias/arthalgias. PSYCHIATRIC: The patient denies depression. NEUROLOGIC: No weakness Constitutional: alert, oriented Psych: no complaints Head: normocephalic ENMT: mucosa pink and moist Neck: supple, jvd (9 cm water) Respiratory: diminished breath sounds (L>R) Cardiovascular: regular rate and rhythm Gastrointestinal: soft Musculoskeletal: muscle tone Extremities: edema Neurological: other (No focal deficits) Labs Result Diagram: 09/26/18 0426 09/26/18 0426 Results 24hrs Laboratory Tests Test 09/25/18 21:16 09/26/18 00:14 09/26/18 00:50 09/26/18 04:26 Bedside Glucose 251 H 199 Creatine Kinase 50 Creatine Kinase 1.1 Index Creatinine Kinase MB 0.53 (Mass) Troponin I 0.020 White Blood Count 8.4 # Red Blood Count 4.47 Hemoglobin 11.4 L Hematocrit 36.0 L Mean Corpuscular 80.5 L Volume Mean Corpuscular 25.5 L Hemoglobin Mean Corpuscular 31.7 L Hemoglobin Concent Red Cell 17.9 H Distribution Width Platelet Count 316 Mean Platelet Volume 10.7 H Immature 0.600 H Granulocytes % Neutrophils % 86.5 H Lymphocytes % 7.7 L Monocytes % 5.1 Eosinophils % 0.0 Basophils % 0.1 Nucleated Red Blood 0.0 Cells % Immature 0.050 H Granulocytes # Neutrophils # 7.3 Lymphocytes # 0.7 L Monocytes # 0.4 Eosinophils # 0.0 Basophils # 0.0 Nucleated Red Blood 0.0 Cells # Sodium Level 137 Potassium Level 4.4 Chloride Level 96 L Carbon Dioxide Level 30 Anion Gap 11 Blood Urea Nitrogen 24 H Creatinine 1.29 H Est Glomerular Filtrat Rate mL/min Glucose Level 146 # Calcium Level 8.4 B-Type Natriuretic 2920 H Peptide Triglycerides Level 84 Cholesterol Level 87 L LDL Cholesterol, 20 Calculated HDL Cholesterol 50 Cholesterol/HDL 1.7 Ratio Test 09/26/18 04:32 09/26/18 08:12 09/26/18 11:36 09/26/18 17:29 Bedside Glucose 130 141 250 H 336 H Test 09/26/18 17:52 09/26/18 20:27 Bedside Glucose 312 H 291 H Medications Medications Current Medications Aspirin (Aspirin) 325 mg DAILY PO Last administered on 09/26/18at 09:51; Admin Dose 325 MG; Start 09/26/18 at 09:00; Status Future hold Carvedilol (Coreg) 3.125 mg BID PO Last administered on 09/26/18at 20:31; Admin Dose 3.125 MG; Start 09/25/18 at 21:00 Cilostazol (Pletal) 100 mg BID PO Last administered on 09/26/18 20:29; Admin Dose 100 MG; Start 09/25/18 at 21:00 Levothyroxine Sodium (Synthroid) 50 mcg BEFORE BREAKFAST PO Last administered on 09/26/18 06:34; Admin Dose 50 MCG; Start 09/26/18 at 07:00 Losartan Potassium (Cozaar) 12.5 mg DAILY PO ; Start 09/26/18 at 09:00 Potassium Chloride (Micro-K) 8 meq DAILY PO Last administered on 09/26/18 09:51; Admin Dose 8 MEQ; Start 09/26/18 at 09:00 Furosemide (Lasix) 40 mg BID IV Last administered on 09/26/18 20:31; Admin Dose 40 MG; Start 09/26/18 at 09:00 Miscellaneous Information 1 ea NOTE XX ; Start 09/25/18 at 18:30 Glucose (Glutose) 15 gm Q15M PRN PO DECREASED GLUCOSE; Start 09/25/18 at 18:30 Glucose (Glutose) 22.5 gm Q15M PRN PO DECREASED GLUCOSE; Start 09/25/18 at 18:30 Dextrose (D50w Syringe) 25 ml Q15M PRN IV DECREASED GLUCOSE; Start 09/25/18 at 18:30 Dextrose (D50w Syringe) 50 ml Q15M PRN IV DECREASED GLUCOSE; Start 09/25/18 at 18:30 Glucagon (Glucagen) 1 mg Q15M PRN IM DECREASED GLUCOSE; Start 09/25/18 at 18:30 Glucose (Glutose) 15 gm Q15M PRN BUCCAL DECREASED GLUCOSE; Start 09/25/18 at 18:30 Dorzolamide/ Timolol (Cosopt Pf Eye Drops) 1 drop BID BOTH EYES Last administered on 09/26/18at 20:29; Admin Dose 1 DROP; Start 09/25/18 at 21:00 Insulin Aspart (Novolog Insulin Pen) (Adult SC Insulin - Moder... WITH MEALS BEDTIME SC Last administered on 09/26/18 17:55; Admin Dose 10 UNIT; Start 09/26/18 at 07:55 Diagnostic Test (Pha) (Accu-Chek) 1 ea 02 XX ; Start 09/27/18 at 02:00 CARMEN FLORENCE Sep 26, 2018 20:48
--- NOTE | 2018-09-26 22:12 | RADRPT ---
Echocardiogram Report Patient Name: David YEAGER ID: [id number] : 1935 (83y 1m)Study Date: 09/26/2018 8:57:10 AM Gender: FAccession #: [id number] Tech: MO Location: [facility] Ref.Physician: CARMEN HOANG Height(Cm): BSA: Weight(Kg): Quality: GoodOrder Physician: CARMEN HOANG Account #: Report amended on 2018-09-26 at 10:14 PM: Added/Modified: Conclusions: [ADDED] Pericardium Findings: Small pericardial effusion. Pleural effusion seen. Electronically Signed by: Carmen Hoang 2018-09-26 22:15:00 PDT End of Addendum Procedures: Echocardiographic Report: Transthoracic echocardiogram with complete 2D, M-Mode, and doppler examination. Indications: Congestive Heart Failure. Measurements: 2D/M Mode Doppler Measurement Value Normal Range Measurement Value Normal Range LVIDd 2D 5.0 [ 3.8 - 5.2 ] cm AV Peak Griffin 1.3 [ 100.0 - 170.0 ] cm/sec LVIDs 2D 3.0 [ 2.2 - 3.5 ] cm AV Peak PG 7.0 [ 2.0 - 9.0 ] mmHg LVPWd 2D 1.0 [ 0.6 - 0.9 ] cm LVOT Peak Griffin 0.8 [ 70.0 - 110.0 ] cm/sec IVSd 2D 1.1 [ 0.6 - 0.9 ] cm LVOT Peak PG 3.0 [ 2.0 - 6.0 ] mmHg IVS/LVPW 2D 1.1 ratio MV E Peak Griffin 1.0 [ 60.0 - 130.0 ] cm/sec AoR Diam 2D 2.9 [ 2.3 - 3.1 ] cm MV Decel Time 204 [ 104 - 258 ] msec LA/Ao 2D 1 ratio Lat E` Griffin 0.1 [ 10.0 - 15.0 ] cm/sec LA Dimen 2D 3.9 [ 2.7 - 3.8 ] cm TR Peak Griffin 3.3 [ 100.0 - 280.0 ] cm/sec TR Peak PG 44.0 mmHg RVSP 52.0 [ 10.0 - 36.0 ] mmHg RA Pressure 8.0 mmHg Findings: Left Ventricle: Normal left ventricular systolic function. Normal left ventricular cavity size. Mild concentric left ventricular hypertrophy. Ejection fraction is visually estimated at 45-50 %. Tissue Doppler/Mitral Doppler indices are consistent with restrictive physiology with markedly elevated left atrial pressure (Stage III-IV diastolic dysfunction). Right Ventricle: Normal right ventricular size. Normal right ventricular systolic function. Left Atrium: The left atrium is normal in size. Right Atrium: The right atrium is normal in size. Mitral Valve: Normal appearance of the mitral valve. Mild mitral annular calcification. Mild mitral valve regurgitation. Aortic Valve: No hemodynamically significant aortic stenosis by doppler. Aortic cusps appear moderately calcified. Mild aortic valve regurgitation. Tricuspid Valve: Normal appearance of the tricuspid valve. The estimated Peak RVSP is 52 mmHg. There is mild tricuspid regurgitation. Pulmonic Valve: Normal pulmonic valve appearance. There is trace to mild pulmonic regurgitation. Pericardium: Small pericardial effusion. Pleural effusion seen. Aorta: Normal aortic root. IVC: Normal size and no respiratory collapse consistent with elevated right atrial pressure. Conclusions: Normal left ventricular systolic function. Normal left ventricular cavity size. Mild concentric left ventricular hypertrophy. Ejection fraction is visually estimated at 45-50 %. Tissue Doppler/Mitral Doppler indices are consistent with restrictive physiology with markedly elevated left atrial pressure (Stage III-IV diastolic dysfunction). Normal appearance of the mitral valve. Mild mitral annular calcification. Mild mitral valve regurgitation. No hemodynamically significant aortic stenosis by doppler. Aortic cusps appear moderately calcified. Mild aortic valve regurgitation. Normal appearance of the tricuspid valve. The estimated Peak RVSP is 52 mmHg. There is mild tricuspid regurgitation. Normal pulmonic valve appearance. There is trace to mild pulmonic regurgitation. Small pericardial effusion. Pleural effusion seen. Electronically Signed By: Carmen Hoang 2018-09-26 22:14:58 PDT
[2018-09-27] VITALS (12 sets, daily range): BP systolic 94–152; BP diastolic 50–67; PULSE 73–86; RESP 16–19
[2018-09-27] MEDS: ACCUCHECK AT 2AM (Patients on SS coverage) XX SCH (02:02)
[2018-09-27] MEDS: ACETAMINOPHEN 325 MG TAB PO PRN ×2 (06:27→12:56)
[2018-09-27] MEDS: LEVOTHYROXINE 50 MCG TAB PO SCH (06:27)
[2018-09-27] MEDS: Insulin NOVOLOG SS MODERATE Algorithm (SS with meals and bedtime) SC SCH ×4 (08:24→20:31)
[2018-09-27] MEDS: DORZOLAMIDE/TIMOLOL/PF 0.2 ML DROPERETTE BOTH EYES SCH ×2 (08:32→20:16)
[2018-09-27] MEDS: FUROSEMIDE 40 MG INJ IV SCH (08:32)
[2018-09-27] MEDS: POTASSIUM CHLORIDE (SR) 8 MEQ CAP PO SCH (08:33)
[2018-09-27] MEDS: LOSARTAN 25 MG TAB PO SCH (08:33)
[2018-09-27] MEDS: CILOSTAZOL 100 MG TAB PO SCH ×2 (08:33→20:16)
[2018-09-27] MEDS ORDERED: LIDOCAINE 1% (MPF) 5 ML VIAL ONE (11:16)
--- NOTE | 2018-09-27 11:22 | PN ---
DATE: 09/27/2018 SUBJECTIVE: The patient was admitted for shortness of breath and CHF exacerbation, acute respiratory distress and hypertension. The patient was first day admitted to ICU for close monitoring and BiPAP . Tolerated well. Transferred to tele yesterday. Patient was supposed to have a thoracentesis for pleural effusion on the left side, but the family refused because the patient had taken aspirin. The y did not want to take the risk. Therefore, patient's thoracentesis was scheduled for today. The pa tient today, doing well, just having neck pain because of the cold air condition. Otherwise, no oth er complaints. No shortness of breath, no chest pain, no discomfort over the heart. No discomfort o june the abdomen. No nausea, no vomiting, no abdominal pain. No hesitancy, no urgency, no difficulty urinating. PHYSICAL EXAMINATION: GENERAL: Patient is alert and oriented x3 in no acute distress. VITAL SIGNS: Blood pressure today is 95/50, heart rate 65, respiratory rate 18, and afebrile. HEENT: Atraumatic, normocephalic. Pupils are equal and reactive to light. Extraocular muscles are intact. Nares are clear, no obstruction, no deviation of the septum. Oral cavity normal oral hygien e. Ear canals are clear, no signs of or infection. Tympanic membranes intact. NECK: Supple. No JVD, no surgical scars, no lymph nodes palpable over the neck. CHEST: AP contour within normal limits. Breasts and nipples are normal, no nipple retraction. HEART: AFib, controlled rate with cardiomegaly. Pacing properly. LUNGS: Has crackles bilaterally over the lungs. ABDOMEN: Soft, positive bowel sounds, no hepatosplenomegaly, no masses palpable over the abdomen and no rebound tenderness. EXTREMITIES: No edema, clubbing or cyanosis. LABORATORY DATA: Today, sodium is 139. CBC is still pending and chemistry is still pending. The patient today scheduled for thoracentesis, diagnoses of pleural effusion, CHF, respiratory distre ss, resolved, type 2 diabetes mellitus, polyneuropathy. Degenerative joint disease, dyslipidemia, an d coronary artery disease. After thoracentesis, possibly the patient can go home. The patient worked with physical therapy. Up and walked with physical therapy, tolerating treatment well. Therefore, possibility of discharge to day in the evening post-thoracentesis. Dictated By: GRAEME VYAS/ABEBE Conf#: [id number] DID#: [id number]
--- NOTE | 2018-09-27 11:51 | CONS ---
Consultation Date/Type/Reason Admit Date/Time Sep 25, 2018 at 13:37 Initial Consult Date 09/26/18 Type of Consult Pulmonary Patient is a very pleasant 83-year-old lady who is a [facility] transferred to hospital because of shortness of breath going on for the last 2 months. According to patient's daughter, the shortness of breath really got worse yesterday with wheezing. Patient denies any chest pain, fever, sputum production and hemoptysis. By the time I saw her, patient is laying comfortably in bed. And did not appear to be in any distress whatsoever. Because of language barrier, history was obtained from patient's daughter who was present in the room. According to her, the patient does have a history of thoracentesis performed several years ago. Past medical history; 1. History of cardiac arrhythmia, status post pacemaker placement in the past. 2. CHF. 3. Hypothyroidism. 4. Diabetes. 5. Mild renal insufficiency. 6. Hypertension. Medications; reviewed. Allergies; none. Social history; remote history of scant smoking. Family history; she is a . Has a supportive family. 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 Review of systems; denies any headache, sinus symptoms, seizures, dysphagia, chest pain, angina, complains of shortness of breath with exertion. Denies any cough, wheezing, sputum production or hemoptysis. Denies any abdominal pain, n ausea vomiting. Melena hematochezia. Complains of mild orthopnea. Denies any urinary symptoms. General exam; elderly female, awake alert, currently no distress. Requesting Provider: GRAEME GRULLON MD Date/Time of Note DATE: 09/27/18 TIME: 11:49 24 HR Interval Summary Free Text/Dictation Patient's condition is stable. Remains awake and alert. Yesterday underwent left thoracentesis. 1100 cc of fluid was removed. Patient denies any shortness breath, chest pain, coughing, wheezing. General exam; elderly woman, awake alert, currently in no distress. H EENT exam; supple neck, positive JVD. No lymphadenopathy. Midline trachea. No thyromegaly. Patient has dentures. Chest exam; clear to auscultation. S1-S2 audible, no murmurs. Regular rhythm. Abdomen exam; soft, nontender. No organomegaly. Bowel sounds audible. Extremity exam; no peripheral edema clubbing. 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 Assessment and recommendations; 1. Patient admitted with hypoxemia due to bilateral pleural effusion status post left thoracentesis with marked radiological improvement. Right lung also looks clear. 2. Underlying cardiomyopathy. 3. Anemia. 4. Acute elevation in serum creatinine likely from Lasix. 5. History of pacemaker placement in the past. 6. Hypertension. 7. Hypothyroidism. 8. History of diabetes. Hold Lasix. Monitor serum creatinine level. If there is a downward trend by tomorrow, consider discharge. I did have a detailed discussion with the patient's daughter at bedside and answered all her questions. Exam/Review of Systems Exam Vitals Vital Signs Date Temp Pulse Resp B/P (MAP) Pulse Ox O2 O2 Flow FiO2 Time Delivery Rate 09/27/18 97.6 73 18 119/56 99 11:34 (77) 09/27/18 Nasal 3.0 08:30 Cannula 09/25/18 60 21:19 Intake and Output 09/26/18 09/26/18 09/27/18 1515:00 23:00 07:00 IntakeIntake Total 50 ml 400 ml 400 ml OutputOutput Total 350 ml 1100 ml BalanceBalance 50 ml 50 ml -700 ml Results Result Diagram: 09/26/18 0426 09/26/18 0426 Results 24hrs Laboratory Tests Test 09/26/18 17:29 09/26/18 17:52 09/26/18 20:27 09/27/18 01:51 Bedside Glucose 336 H 312 H 291 H 248 H Test 09/27/18 08:11 09/27/18 11:34 Bedside Glucose 189 243 H Medications Medication Current Medications Aspirin (Aspirin) 325 mg DAILY PO Last administered on 09/26/18at 09:51; Admin Dose 325 MG; Start 09/26/18 at 09:00; Status Hold Carvedilol (Coreg) 3.125 mg BID PO Last administered on 09/26/18at 20:31; Admin Dose 3.125 MG; Start 09/25/18 at 21:00 Cilostazol (Pletal) 100 mg BID PO Last administered on 09/27/18at 08:33; Admin Dose 100 MG; Start 09/25/18 at 21:00 Levothyroxine Sodium (Synthroid) 50 mcg BEFORE BREAKFAST PO Last administered on 09/27/18 06:27; Admin Dose 50 MCG; Start 09/26/18 at 07:00 Losartan Potassium (Cozaar) 12.5 mg DAILY PO ; Start 09/26/18 at 09:00 Potassium Chloride (Micro-K) 8 meq DAILY PO Last administered on 09/27/18 08:33; Admin Dose 8 MEQ; Start 09/26/18 at 09:00 Furosemide (Lasix) 40 mg BID IV Last administered on 09/26/18 20:31; Admin Dose 40 MG; Start 09/26/18 at 09:00 Miscellaneous Information 1 ea NOTE XX ; Start 09/25/18 at 18:30 Glucose (Glutose) 15 gm Q15M PRN PO DECREASED GLUCOSE; Start 09/25/18 at 18:30 Glucose (Glutose) 22.5 gm Q15M PRN PO DECREASED GLUCOSE; Start 09/25/18 at 18:30 Dextrose (D50w Syringe) 25 ml Q15M PRN IV DECREASED GLUCOSE; Start 09/25/18 at 18:30 Dextrose (D50w Syringe) 50 ml Q15M PRN IV DECREASED GLUCOSE; Start 09/25/18 at 18:30 Glucagon (Glucagen) 1 mg Q15M PRN IM DECREASED GLUCOSE; Start 09/25/18 at 18:30 Glucose (Glutose) 15 gm Q15M PRN BUCCAL DECREASED GLUCOSE; Start 09/25/18 at 18:30 Dorzolamide/ Timolol (Cosopt Pf Eye Drops) 1 drop BID BOTH EYES Last administer ed on 09/27/18at 08:32; Admin Dose 1 DROP; Start 09/25/18 at 21:00 Insulin Aspart (Novolog Insulin Pen) (Adult SC Insulin - Moder... WITH MEALS BEDTIME SC Last administered on 09/27/18 11:38; Admin Dose 6 UNIT; Start 09/26/18 at 07:55 Diagnostic Test (Pha) (Accu-Chek) 1 ea 02 XX Last administered on 09/27/18 02:02; Admin Dose 1 EA; Start 09/27/18 at 02:00 Acetaminophen (Tylenol Tab) 650 mg Q6H PRN PO MILD PAIN(1-3)OR ELEVATED TEMP Last administered on 09/27/18 06:27; Admin Dose 650 MG; Start 09/26/18 at 22:00 YI MOYA Sep 27, 2018 11:51
--- NOTE | 2018-09-27 16:38 | CONS ---
Assessment/Plan Assessment/Plan Hospital Course (Demo Recall) IMPRESSION: 1. Congestive heart failure exacerbation, question systolic versus diastolic. By most recent echo in 2013, EF of 45% to 50%. Thus, it will be systolic, acute on chronic, than diastolic.-neg trop x 3. Echo this admit with EF 45-50% 2. Permanent pacemaker with no signs of dysfunction at this time, atrioventricular pacing 100%. 3. Pleural effusions likely consistent with the patient's congestive heart failure exacerbation with volume overloaded state. Now post-op s/p thoracentesis 4. Respiratory failure, on BiPAP. 5. Renal insufficiency, mild. 6. Leukocytosis. 7. Peripheral arterial disease, without medications. 8. Hypothyroidism. 9. Diabetes mellitus. Recc: -Tele -serial ecg's -Continue losartan s/p decrease in dose and coreg low dose as tolerated only and follow BP closely -Contineu asa/pletal -Lasix held per pulmonary due to mild increase in renal insufficiency, Follow volume status and creatnine clsoely Consultation Date/Type/Reason Admit Date/Time Sep 25, 2018 at 13:37 Initial Consult Date 09/26/18 Type of Consult Cardiology Reason for Consultation CHF Requesting Provider: GRAEME GRULLON MD Date/Time of Note DATE: 09/27/18 TIME: 16:25 Exam/Review of Systems Vital Signs Vitals Vital Signs Date Temp Pulse Resp B/P (MAP) Pulse Ox O2 O2 Flow FiO2 Time Delivery Rate 09/27/18 76 16:04 09/27/18 98.0 19 152/67 99 15:44 (95) 09/27/18 3.0 14:34 09/27/18 Nasal 08:30 Cannula 09/25/18 60 21:19 Intake and Output 09/26/18 09/26/18 09/27/18 1515:00 23:00 07:00 IntakeIntake Total 50 ml 400 ml 400 ml OutputOutput Total 350 ml 1100 ml BalanceBalance 50 ml 50 ml -700 ml Exam Exam Review of Systems: CONSTITUTIONAL: No fevers, chills. PULMONARY: No sob CARDIOVASCULAR: c/o chest pain R sided with TTP GASTROINTESTINAL: No nausea/vomiting. GENITOURINARY: No hematuria/dysuria. MUSCULOSKELETAL: No myagias/arthalgias. PSYCHIATRIC: The patient denies depression. NEUROLOGIC: No weakness Constitutional: alert Psych: no complaints Head: normocephalic ENMT: mucosa pink and moist Neck: supple, jvd (9 cm water) Respiratory: diminished breath sounds (at bases/B) Cardiovascular: regular rate and rhythm Gastrointestinal: soft, non-tender Musculoskeletal: muscle tone (normal) Extremities: edema (nonr) Neurological: other (NO focal deficits) Labs Result Diagram: 09/26/18 0426 09/26/18 0426 Results 24hrs Laboratory Tests Test 09/26/18 17:29 09/26/18 17:52 09/26/18 20:27 09/27/18 01:51 Bedside Glucose 336 H 312 H 291 H 248 H Test 09/27/18 08:11 09/27/18 11:00 09/27/18 11:34 Bedside Glucose 189 243 H Body Fluid Total 3.5 Protein Medications Medications Current Medications Aspirin (Aspirin) 325 mg DAILY PO Last administered on 09/26/18at 09:51; Admin Dose 325 MG; Start 09/26/18 at 09:00; Status Hold Carvedilol (Coreg) 3.125 mg BID PO Last administered on 09/26/18at 20:31; Admin Dose 3.125 MG; Start 09/25/18 at 21:00 Cilostazol (Pletal) 100 mg BID PO Last administered on 09/27/18at 08:33; Admin Dose 100 MG; Start 09/25/18 at 21:00 Levothyroxine Sodium (Synthroid) 50 mcg BEFORE BREAKFAST PO Last administered on 09/27/18at 06:27; Admin Dose 50 MCG; Start 09/26/18 at 07:00 Losartan Potassium (Cozaar) 12.5 mg DAILY PO ; Start 09/26/18 at 09:00 Potassium Chloride (Micro-K) 8 meq DAILY PO Last administered on 09/27/18at 08:33; Admin Dose 8 MEQ; Start 09/26/18 at 09:00 Miscellaneous Information 1 ea NOTE XX ; Start 09/25/18 at 18:30 Glucose (Glutose) 15 gm Q15M PRN PO DECREASED GLUCOSE; Start 09/25/18 at 18:30 Glucose (Glutose) 22.5 gm Q15M PRN PO DECREASED GLUCOSE; Start 09/25/18 at 18:30 Dextrose (D50w Syringe) 25 ml Q15M PRN IV DECREASED GLUCOSE; Start 09/25/18 at 18:30 Dextrose (D50w Syringe) 50 ml Q15M PRN IV DECREASED GLUCOSE; Start 09/25/18 at 18:30 Glucagon (Glucagen) 1 mg Q15M PRN IM DECREASED GLUCOSE; Start 09/25/18 at 18:30 Glucose (Glutose) 15 gm Q15M PRN BUCCAL DECREASED GLUCOSE; Start 09/25/18 at 18:30 Dorzolamide/ Timolol (Cosopt Pf Eye Drops) 1 drop BID BOTH EYES Last administered on 09/27/18at 08:32; Admin Dose 1 DROP; Start 09/25/18 at 21:00 Insulin Aspart (Novolog Insulin Pen) (Adult SC Insulin - Moder... WITH MEALS BEDTIME SC Last administered on 09/27/18 11:38; Admin Dose 6 UNIT; Start 09/26/18 at 07:55 Diagnostic Test (Pha) (Accu-Chek) 1 ea 02 XX Last administered on 09/27/18 02:02; Admin Dose 1 EA; Start 09/27/18 at 02:00 Acetaminophen (Tylenol Tab) 650 mg Q6H PRN PO MILD PAIN(1-3)OR ELEVATED TEMP Last administered on 09/27/18 12:56; Admin Dose 650 MG; Start 09/26/18 at 22:00 CARMEN FLORENCE Sep 27, 2018 16:35
[2018-09-27] MEDS: HYDROCODONE/APAP (5/325) TAB PO PRN (22:17)
[2018-09-28] VITALS (9 sets, daily range): BP systolic 97–137; BP diastolic 47–75; PULSE 71–88; RESP 17–20
[2018-09-28] MEDS: ACCUCHECK AT 2AM (Patients on SS coverage) XX SCH (03:42)
[2018-09-28] MEDS: LEVOTHYROXINE 50 MCG TAB PO SCH (06:31)
[2018-09-28] MEDS: Insulin NOVOLOG SS MODERATE Algorithm (SS with meals and bedtime) SC SCH ×2 (07:44→12:00)
[2018-09-28] MEDS: CILOSTAZOL 100 MG TAB PO SCH (08:42)
[2018-09-28] MEDS: LOSARTAN 25 MG TAB PO SCH (08:42)
[2018-09-28] MEDS: ASPIRIN 325 MG TAB PO SCH (08:43)
[2018-09-28] MEDS: POTASSIUM CHLORIDE (SR) 8 MEQ CAP PO SCH (08:43)
[2018-09-28] MEDS: DORZOLAMIDE/TIMOLOL/PF 0.2 ML DROPERETTE BOTH EYES SCH (08:43)
[2018-09-28] MEDS: HYDROCODONE/APAP (5/325) TAB PO PRN (11:26)
--- NOTE | 2018-09-28 15:00 | CONS ---
Assessment/Plan Assessment/Plan Assessment/Plan (Daily) 1. Congestive heart failure exacerbation 2. S/P PPM 3. Pleural effusions s/p thoracentesis 4. Respiratory failure 5. Renal insufficiency 6. Peripheral arterial disease 7. Hypothyroidism. 8. Diabetes mellitus. Continue Coreg Continue Losartan Continue ASA Continue Pletal Continue Levothyroxine Consultation Date/Type/Reason Admit Date/Time Sep 25, 2018 at 13:37 Type of Consult Cardiology Date/Time of Note DATE: 09/28/18 TIME: 14:57 Past Medical History Home Meds Reported Medications Gabapentin* (Gabapentin*) 100 Mg Capsule, 100 MG PO BID PRN for PAIN, #90 CAP 09/25/18 Insulin Glargine,Hum.rec.anlog (Cintia Mcgowan) 300 Unit/1 Ml Insuln.pen, 20 UNIT SQ QHS, EA 09/25/18 Memantine HCl/Donepezil HCl (Namzaric 28 mg-10 mg Capsule) 1 Each Cap.spr.24, 1 EACH PO DAILY 09/25/18 Cilostazol* (Cilostazol*) 100 Mg Tablet, 100 MG PO BID, TAB 09/25/18 Aspirin* (Aspirin*) 325 Mg Tablet, 325 MG PO DAILY, TAB 09/25/18 Levothyroxine Sodium* (Levoxyl*) 50 Mcg Tablet, 50 MCG PO BEFORE BREAKFAST, #30 TAB 09/25/18 Glipizide/Metformin HCl (Glipizide-Metformin 5-500 mg) 1 Each Tablet, 1 TAB PO BID 09/25/18 Furosemide* (Furosemide*) 20 Mg Tablet, 20 MG PO DAILY, #60 TAB 09/25/18 Ezetimibe* (Zetia*) 10 Mg Tablet, 10 MG PO HS, TAB 09/25/18 Dorzolamide-Timolol* (Cosopt*) 2%-0.5% - 10 Ml Soln, 1 DROP BOTH EYES BID, BOTTLE 09/25/18 Cholecalciferol (Vitamin D3) 5,000 Unit Tablet, 5000 UNIT PO DAILY, TAB 09/25/18 Carvedilol* (Carvedilol*) 3.125 Mg Tablet, 3.125 MG PO BID, #60 TAB 09/25/18 Discontinued Reported Medications Meclizine Hcl* (Meclizine Hcl*) 25 Mg Tablet, 12.5 MG PO BID PRN for DIZZINESS, TAB 09/25/18 Losartan Potassium* (Losartan Potassium*) 25 Mg Tablet, 12.5 MG PO DAILY, TAB 09/25/18 Rosuvastatin Calcium* (Crestor*) 40 Mg Tablet, 40 MG PO QHS, #30 TAB 09/25/18 Potassium Chloride* (Klor-Con*) 8 Meq Tablet.sa, 8 MEQ PO DAILY, TAB 09/25/18 Insulin Aspart* (Novolog Insulin Pen*) 100 Unit/Ml Soln, 0 SC .SLIDING SCALE AC, EA WITH LARGEST MEAL 09/25/18 Dorzolamide-Timolol* (Cosopt*) 2%-0.5% Soln, 1 DROP LEFT EYE BID, BOTTLE 04/06/14 Ezetimibe* (Zetia*) 10 Mg Tablet, 10 MG PO DAILY, TAB 04/06/14 Warfarin Sodium* (Coumadin*) 5 Mg Tablet, 5 MG PO DAILY, TAB 04/06/14 Warfarin Sodium* (Coumadin*) 2.5 Mg Tablet, 2.5 MG PO DAILY, TAB 04/06/14 Furosemide* (Lasix*) 40 Mg Tablet, 40 MG PO DAILY, TAB 04/06/14 Potassium Chloride* (Potassium Chloride*) 8 Meq Capsule.er, 8 MEQ PO DAILY, CAP 04/06/14 Insulin Aspart (Novolog) 100 U/Ml Cartridge, 10 UNITS SC DAILY, EA 04/06/14 Cholecalciferol* (Vitamin D*) 5,000 Unit Tablet, 5000 UNIT PO WEEKLY ON SUNDAY, TAB 02/03/14 Insulin Detemir* (Levemir*) 100 U/Ml Insuln.pen, 40 UNIT SC QAM, EA 02/03/14 Levothyroxine Sodium* (Levothyroxine Sodium*) 50 Mcg Tablet, 50 MCG PO AC BREAKFAST, TAB 02/03/14 Rosuvastatin Calcium* (Crestor*) 40 Mg Tablet, 40 MG PO HS, TAB 02/03/14 Glyburide, Micro-Metformin Hcl (Glucovance) 5-500 Mg Tablet, 1 TAB PO BID, TAB 02/03/14 Carvedilol* (Coreg*) 12.5 Mg Tablet, 12.5 MG PO BID, TAB 02/03/14 Valsartan* (Diovan*) 80 Mg Tablet, 80 MG PO DAILY, TAB 02/03/14 Medications Current Medications Aspirin (Aspirin) 325 mg DAILY PO Last administered on 09/28/18 08:43; Admin Dose 325 MG; Start 09/26/18 at 09:00 Carvedilol (Coreg) 3.125 mg BID PO Last administered on 09/28/18 08:42; Admin Dose 3.125 MG; Start 09/25/18 at 21:00 Cilostazol (Pletal) 100 mg BID PO Last administered on 09/28/18 08:42; Admin Dose 100 MG; Start 09/25/18 at 21:00 Levothyroxine Sodium (Synthroid) 50 mcg BEFORE BREAKFAST PO Last administered on 09/28/18 06:31; Admin Dose 50 MCG; Start 09/26/18 at 07:00 Losartan Potassium (Cozaar) 12.5 mg DAILY PO Last administered on 09/28/18 08:42; Admin Dose 12.5 MG; Start 09/26/18 at 09:00 Potassium Chloride (Micro-K) 8 meq DAILY PO Last administered on 09/28/18 08:43; Admin Dose 8 MEQ; Start 09/26/18 at 09:00 Miscellaneous Information 1 ea NOTE XX ; Start 09/25/18 at 18:30 Glucose (Glutose) 15 gm Q15M PRN PO DECREASED GLUCOSE; Start 09/25/18 at 18:30 Glucose (Glutose) 22.5 gm Q15M PRN PO DECREASED GLUCOSE; Start 09/25/18 at 18:30 Dextrose (D50w Syringe) 25 ml Q15M PRN IV DECREASED GLUCOSE; Start 09/25/18 at 18:30 Dextrose (D50w Syringe) 50 ml Q15M PRN IV DECREASED GLUCOSE; Start 09/25/18 at 18:30 Glucagon (Glucagen) 1 mg Q15M PRN IM DECREASED GLUCOSE; Start 09/25/18 at 18:30 Glucose (Glutose) 15 gm Q15M PRN BUCCAL DECREASED GLUCOSE; Start 09/25/18 at 18:30 Dorzolamide/ Timolol (Cosopt Pf Eye Drops) 1 drop BID BOTH EYES Last administered on 09/28/18 08:43; Admin Dose 1 DROP; Start 09/25/18 at 21:00 Insulin Aspart (Novolog Insulin Pen) (Adult SC Insulin - Moder... WITH MEALS BEDTIME SC Last administered on 09/28/18 12:00; Admin Dose 4 UNIT; Start 09/26/18 at 07:55 Diagnostic Test (Pha) (Accu-Chek) 1 ea 02 XX Last administered on 09/28/18 03:42; Admin Dose 1 EA; Start 09/27/18 at 02:00 Acetaminophen (Tylenol Tab) 650 mg Q6H PRN PO MILD PAIN(1-3)OR ELEVATED TEMP Last administered on 09/27/18at 12:56; Admin Dose 650 MG; Start 09/26/18 at 22:00 Acetaminophen/ Hydrocodone Bitart ([place] (5/325)) 1 tab Q4 PRN PO MODERATE PAIN LEVEL 4-6 Last administered on 09/28/18 11:26; Admin Dose 1 TAB; Start 09/27/18 at 17:30 Allergies: Coded Allergies: No Known Allergy (Unverified , 09/25/18) Social History Smoking Status: Never smoker Exam/Review of Systems Vital Signs Vitals Vital Signs Date Temp Pulse Resp B/P (MAP) Pulse Ox O2 O2 Flow FiO2 Time Delivery Rate 09/28/18 3.0 14:04 09/28/18 86 12:04 09/28/18 98.1 18 137/75 97 Room Air 11:30 (95) 09/25/18 60 21:19 Intake and Output 09/27/18 09/27/18 09/28/18 1515:00 23:00 07:00 IntakeIntake Total 480 ml 300 ml OutputOutput Total 300 ml 700 ml BalanceBalance 180 ml -400 ml Exam Constitutional: alert, oriented Neck: supple, non-tender Respiratory: clear to auscultation Cardiovascular: regular rate and rhythm (no m/r/g) Gastrointestinal: soft Labs Result Diagram: 09/26/18 0426 09/26/18 0426 Results 24hrs Laboratory Tests Test 09/27/18 17:30 09/27/18 20:14 09/28/18 03:39 09/28/18 07:23 Bedside Glucose 201 198 275 H 268 H Test 09/28/18 11:27 Bedside Glucose 189 Medications Medications Current Medications Aspirin (Aspirin) 325 mg DAILY PO Last administered on 09/28/18at 08:43; Admin Dose 325 MG; Start 09/26/18 at 09:00 Carvedilol (Coreg) 3.125 mg BID PO Last administered on 09/28/18 08:42; Admin Dose 3.125 MG; Start 09/25/18 at 21:00 Cilostazol (Pletal) 100 mg BID PO Last administered on 09/28/18 08:42; Admin Dose 100 MG; Start 09/25/18 at 21:00 Levothyroxine Sodium (Synthroid) 50 mcg BEFORE BREAKFAST PO Last administered on 09/28/18 06:31; Admin Dose 50 MCG; Start 09/26/18 at 07:00 Losartan Potassium (Cozaar) 12.5 mg DAILY PO Last administered on 09/28/18 08:42; Admin Dose 12.5 MG; Start 09/26/18 at 09:00 Potassium Chloride (Micro-K) 8 meq DAILY PO Last administered on 09/28/18 08:43; Admin Dose 8 MEQ; Start 09/26/18 at 09:00 Miscellaneous Information 1 ea NOTE XX ; Start 09/25/18 at 18:30 Glucose (Glutose) 15 gm Q15M PRN PO DECREASED GLUCOSE; Start 09/25/18 at 18:30 Glucose (Glutose) 22.5 gm Q15M PRN PO DECREASED GLUCOSE; Start 09/25/18 at 18:30 Dextrose (D50w Syringe) 25 ml Q15M PRN IV DECREASED GLUCOSE; Start 09/25/18 at 18:30 Dextrose (D50w Syringe) 50 ml Q15M PRN IV DECREASED GLUCOSE; Start 09/25/18 at 18:30 Glucagon (Glucagen) 1 mg Q15M PRN IM DECREASED GLUCOSE; Start 09/25/18 at 18:30 Glucose (Glutose) 15 gm Q15M PRN BUCCAL DECREASED GLUCOSE; Start 09/25/18 at 18:30 Dorzolamide/ Timolol (Cosopt Pf Eye Drops) 1 drop BID BOTH EYES Last administered on 09/28/18 08:43; Admin Dose 1 DROP; Start 09/25/18 at 21:00 Insulin Aspart (Novolog Insulin Pen) (Adult SC Insulin - Moder... WITH MEALS BEDTIME SC Last administered on 09/28/18at 12:00; Admin Dose 4 UNIT; Start 09/26/18 at 07:55 Diagnostic Test (Pha) (Accu-Chek) 1 ea 02 XX Last administered on 09/28/18 03:42; Admin Dose 1 EA; Start 09/27/18 at 02:00 Acetaminophen (Tylenol Tab) 650 mg Q6H PRN PO MILD PAIN(1-3)OR ELEVATED TEMP Last administered on 09/27/18at 12:56; Admin Dose 650 MG; Start 09/26/18 at 22:00 Acetaminophen/ Hydrocodone Bitart ([place] (5/325)) 1 tab Q4 PRN PO MODERATE PAIN LEVEL 4-6 Last administered on 09/28/18at 11:26; Admin Dose 1 TAB; Start 09/27/18 at 17:30 ANDRZEJ ALARCON M.D. Sep 28, 2018 15:00
--- NOTE | 2018-10-01 09:34 | GILP ---
DATE OF PROCEDURE: 09/28/2018 The patient was admitted for acute hypertensive urgency, acute respiratory failure. In the Emergency Room, she was given IV diuretics. She was put on BiPAP. Tolerated it well. Saturation started goi ng up over 80 and therefore, she was admitted to ICU for further close monitoring. First day in the ICU patient tolerated the treatments well and was put on oxygen, BiPAP, and gradually downgraded fro m BiPAP and downgraded from ICU to tele bed. During the stay in the hospital, patient, even though w as given Lasix, pleural effusions continued to exist and also with low blood pressure. Therefore, erika davis had thoracentesis for the large amount of pleural effusion and 1100 mL was relieved from her radha ng, tolerated it very well. Therefore, on 09/28/2018, patient discharged home in stable condition wi th a diagnosis of: 1. Pleural effusion, resolved partially. 2. Acute respiratory failure, resolved. 3. Hypoxemia, resolved. 4. Hypertension, stable. 5. Atrial fibrillation, stable. 6. Coronary artery disease. 7. Degenerative joint disease. 8. Type 2 diabetes mellitus. 9. Osteoarthritis. Dictated By: GRAEME GRULLON MD SB/NTS Conf#: [id number] DID#: [id number]
== END 2018-09-28 15:49 | disposition still patient (30) | DRG 291 ==
LOC: E/R 11:54 → ICU 13:37 → TEL 09-26 05:43
PROVIDERS: ADMIT Family Medicine; ATTEND Family Medicine
PROC: 5A09357 Assistance with Respiratory Ventilation, Less than 24 Consecutive Hours, Continuous Positive Airway Pressure (ICD-10-PCS; 2018-09-25)
PROC: 0W9B3ZZ Drainage of Left Pleural Cavity, Percutaneous Approach (ICD-10-PCS; principal; 2018-09-27)
DX: I13.0 Hypertensive heart and chronic kidney disease with heart failure and stage 1 through stage 4 chronic kidney disease, or unspecified chronic kidney disease (principal); I50.23 Acute on chronic systolic (congestive) heart failure; J96.01 Acute respiratory failure with hypoxia; I16.1 Hypertensive emergency; J90 Pleural effusion, not elsewhere classified; I48.91 Unspecified atrial fibrillation; J45.909 Unspecified asthma, uncomplicated; M19.90 Unspecified osteoarthritis, unspecified site; N18.9 Chronic kidney disease, unspecified; E78.5 Hyperlipidemia, unspecified; I25.10 Atherosclerotic heart disease of native coronary artery without angina pectoris; E11.42 Type 2 diabetes mellitus with diabetic polyneuropathy; F03.90 Unspecified dementia, unspecified severity, without behavioral disturbance, psychotic disturbance, mood disturbance, and anxiety; E11.51 Type 2 diabetes mellitus with diabetic peripheral angiopathy without gangrene; E03.9 Hypothyroidism, unspecified; I42.9 Cardiomyopathy, unspecified; D64.9 Anemia, unspecified; E11.22 Type 2 diabetes mellitus with diabetic chronic kidney disease; R29.6 Repeated falls; I16.0 Hypertensive urgency; Z95.0 Presence of cardiac pacemaker; Z79.4 Long term (current) use of insulin
CPT/HCPCS: 36415; 36600; 71045; 76604; 76942; 80048; 80053; 80061; 82550; 82553; 82803; 82962; 83880; 84157; 84484; 85025; 85610; 85730; 93005; 93306; 94644; 94660; 96365; 96375; 97162; 97165; J1100; J1815; J1940; J2270; J2405; J3475; J7042